=== PATIENT | male | born 1930 | race African-American/Black ===

== ENCOUNTER 2018-09-16 12:04 | Inpatient (IN) | payer OTHER ==
[~2018-09-16] VITALS: Ht 170.2 cm; Wt 59.4 kg
[~2018-09-16 12:04] MED LIST: ACET-2178 PO; ASPI-1159 PO; CALC-1035 PO; DOCU250C30 PO; Magnesium Oxide PO; SIMV20TA6 PO; TAMS-11 PO
[2018-09-16] MEDS ORDERED: SODIUM CHLORIDE 0.9% 1,000 ML IV ONE (13:50)
[2018-09-16 15:02] LABS: INR 1.1; PARTIAL THROMBOPLASTIN TIME 21.9 sec (23.4-31.0)
[2018-09-16 15:04] LABS: CHLORIDE 110 mEq/L (98-107)
[2018-09-16 15:08] LABS: EOSINOPHILS % 3.4 % (0.0-5.0); HEMATOCRIT. 30.1 % (42.0-52.0); HEMOGLOBIN. 9.7 g/dL (14.0-18.0); LYMPHOCYTES % 42.1 % (20.0-50.0); MEAN CORPUSCULAR HEMOGLOBIN 25.8 pg (28.0-32.0); MEAN PLATELET VOLUME 10.1 fl (7.4-10.4); MONOCYTES % 10.2 % (2.0-8.0); NEUTROPHILS % 43.3 % (40.0-76.0); PLATELET 205 x1000/uL (130-400); RED BLOOD CELL COUNT 3.76 mill/uL (4.7-6.1); RED CELL DISTRIBUTION WIDTH 15.7 % (11.6-14.6)
[2018-09-16 15:10] LABS: CLARITY URINE CLEAR (CLEAR); COLOR URINE YELLOW (YELLOW); KETONES URINE NEGATIVE (NEGATIVE); LEUKOCYTE ESTERASE URINE NEGATIVE (NEGATIVE); NITRITE URINE NEGATIVE (NEGATIVE); OCCULT BLOOD URINE NEGATIVE (NEGATIVE); PH URINE 5.5 (4.5-8.0); PROTEIN URINE NEGATIVE (NEGATIVE); SPECIFIC GRAVITY URINE 1.013 (1.005-1.030)
[2018-09-16] MEDS ORDERED: ASPIRIN 325MG EC TABLET PO ONE (16:45)
[2018-09-16] MEDS ORDERED: HYDROCODONE/ACETAMINOPHEN 5/325MG TABLET PO PRN (18:00)
[2018-09-16] MEDS ORDERED: DIPHENHYDRAMINE 50MG/ML VIAL IV PRN (18:00)
[2018-09-16] MEDS ORDERED: IPRATROPIUM/ALBUTEROL 0.5-3(2.5)MG/3ML NEB INH PRN (18:00)
[2018-09-16] MEDS ORDERED: ACETAMINOPHEN 650MG SUPP PR PRN (18:00)
[2018-09-16] MEDS ORDERED: ACETAMINOPHEN 325MG TABLET PO PRN (18:00)
[2018-09-16] MEDS ORDERED: CLONIDINE 0.1MG TABLET PO PRN (18:00)
[2018-09-16] MEDS ORDERED: ONDANSETRON HCL 4MG/2ML INJ IV PRN (18:00)
[2018-09-16] MEDS ORDERED: MAGNESIUM/ALUMINUM HYDROXIDE/SIMETHICONE 30ML UDC PO PRN (18:00)
[2018-09-16] MEDS ORDERED: NA PHOS,M-B/NA PHOS,DI-BA ENEMA 118ML PR PRN (21:00)
[2018-09-16 21:27] LABS: AMMONIA 31 uMol/L (<32)
[2018-09-17 01:15] VITALS: BP 145/88
[2018-09-17] MEDS ORDERED: DEXT 5%/0.45% NACL 1000ML 1,000 ML IV SCH (01:31)
[2018-09-17 01:38] VITALS: BP 145/88
[2018-09-17 04:00] VITALS: BP 141/71
[2018-09-17 06:11] LABS: *AMPHETAMINES SCREEN URINE NEGATIVE (NEGATIVE); *BARBITURATES SCREEN URINE NEGATIVE (NEGATIVE); *BENZODIAZEPINES SCREEN URINE NEGATIVE (NEGATIVE); *COCAINE SCREEN URINE NEGATIVE (NEGATIVE)
[2018-09-17 06:13] LABS: CANNABINOID URINE SCREEN NEGATIVE (NEGATIVE); METHADONE URINE SCREEN NEGATIVE (NEGATIVE); OPIATES URINE SCREEN NEGATIVE (NEGATIVE); PHENCYCLIDINE URINE SCREEN NEGATIVE (NEGATIVE)
[2018-09-17 06:56] LABS: BASOPHILS % 0.6 % (0.0-2.0); EOSINOPHILS % 3.7 % (0.0-5.0); HEMATOCRIT. 27.3 % (42.0-52.0); HEMOGLOBIN. 8.9 g/dL (14.0-18.0); LYMPHOCYTES % 42.3 % (20.0-50.0); MEAN CORPUSCULAR HEMOGLOBIN 25.8 pg (28.0-32.0); MEAN CORPUSCULAR VOLUME 79.2 fL (80.0-94.0); MEAN PLATELET VOLUME 10.1 fl (7.4-10.4); MONOCYTES % 10.3 % (2.0-8.0); NEUTROPHILS % 43.1 % (40.0-76.0); PLATELET 187 x1000/uL (130-400); RED BLOOD CELL COUNT 3.45 mill/uL (4.7-6.1); RED CELL DISTRIBUTION WIDTH 15.4 % (11.6-14.6)
[2018-09-17 07:21] LABS: CHLORIDE 112 mEq/L (98-107)
[2018-09-17 07:41] LABS: HDL CHOLESTEROL 56 mg/dL (40-59); LDL CHOLESTEROL 35 mg/dL (5-100); T4 FREE 1.05 ng/dL (0.76-1.46); TOTAL IRON BINDING CAPACITY 236 ug/dL (250-450)
[2018-09-17 08:00] VITALS: BP 141/74
[2018-09-17] MEDS ORDERED: ENOXAPARIN 40MG/0.4ML SYR SUBCUT SCH (09:00)
[2018-09-17 12:00] VITALS: BP 108/49
[2018-09-17 15:22] VITALS: BP 108/78
== END 2018-09-17 16:30 | disposition home health service (06) | DRG 683 ==
LOC: ER 15:46 → 5WST 17:06 → EDBEDREQTM 17:12 → EDBEDREQ 17:12 → SUPCPDRO 17:47 → ENRESERV 22:33
PROVIDERS: ADMIT Internal Medicine; ATTEND Internal Medicine
DX: N17.9 Acute kidney failure, unspecified (principal); G93.40 Encephalopathy, unspecified; J98.11 Atelectasis; E86.0 Dehydration; D64.9 Anemia, unspecified; F03.90 Unspecified dementia, unspecified severity, without behavioral disturbance, psychotic disturbance, mood disturbance, and anxiety; N40.0 Benign prostatic hyperplasia without lower urinary tract symptoms; R26.2 Difficulty in walking, not elsewhere classified; Z79.899 Other long term (current) drug therapy
CPT/HCPCS: 36415; 71045; 76770; 80061; 80305; 82140; 82962; 83540; 83550; 83880; 84439; 84443; 84484; 93005; 93306; 93970; 97162; 99285; J1650; J7030

== ENCOUNTER 2018-10-16 22:51 | Inpatient (IN) | payer OTHER ==
[~2018-10-16] VITALS: Ht 180.3 cm; Wt 73.5 kg
[2018-10-17 00:19] LABS: BASOPHILS % 1.3 % (0.0-2.0); EOSINOPHILS % 3.5 % (0.0-5.0); HEMATOCRIT. 29.4 % (42.0-52.0); HEMOGLOBIN. 9.4 g/dL (14.0-18.0); LYMPHOCYTES % 38.9 % (20.0-50.0); MEAN CORPUSCULAR HEMOGLOBIN 25.2 pg (28.0-32.0); MEAN PLATELET VOLUME 9.8 fl (7.4-10.4); NEUTROPHILS % 47.3 % (40.0-76.0); PLATELET 215 x1000/uL (130-400); RED BLOOD CELL COUNT 3.72 mill/uL (4.7-6.1); RED CELL DISTRIBUTION WIDTH 15.8 % (11.6-14.6)
[2018-10-17 00:27] LABS: CHLORIDE 116 mEq/L (98-107)
[2018-10-17] MEDS ORDERED: LABETALOL HCL 20MG/4ML CARPUJECT IV ONE (01:30)
[2018-10-17 14:00] VITALS: BP 147/87
[2018-10-17] MEDS ORDERED: ACETAMINOPHEN 325MG TABLET PO PRN (15:30)
[2018-10-17] MEDS ORDERED: DIPHENHYDRAMINE 50MG/ML VIAL IV PRN (15:30)
[2018-10-17] MEDS ORDERED: ONDANSETRON HCL 4MG/2ML INJ IV PRN (15:30)
[2018-10-17] MEDS ORDERED: MAGNESIUM/ALUMINUM HYDROXIDE/SIMETHICONE 30ML UDC PO PRN (15:30)
[2018-10-17] MEDS ORDERED: IPRATROPIUM/ALBUTEROL 0.5-3(2.5)MG/3ML NEB INH PRN (15:30)
[2018-10-17] MEDS ORDERED: ACETAMINOPHEN 650MG SUPP PR PRN (15:30)
[2018-10-17] MEDS ORDERED: HYDROCODONE/ACETAMINOPHEN 5/325MG TABLET PO PRN (15:30)
[2018-10-17] MEDS ORDERED: NA PHOS,M-B/NA PHOS,DI-BA ENEMA 118ML PR PRN (15:30)
[2018-10-17] MEDS ORDERED: GUAIFENESIN 200MG/10ML SUGAR FREE UDC PO PRN (15:30)
[2018-10-17] MEDS ORDERED: DOCUSATE SODIUM 100MG CAPSULE PO PRN (15:30)
[2018-10-17] MEDS ORDERED: CLONIDINE 0.1MG TABLET PO PRN (15:30)
[2018-10-17 16:00] VITALS: BP 137/77
[2018-10-17] MEDS ORDERED: ENOXAPARIN 30MG/0.3ML SYR SUBCUT SCH (16:00)
[2018-10-17 16:22] LABS: BG BASE EXCESS 0.9 mmol/L (-2.0-2.0); BG CARBOXYHEMOGLOBIN 0.3 % (0.5-1.5); BG DEOXYHEMOGLOBIN 3.5 % (0.0-5.0); BG FRACTION INSPIRED OXYGEN 21; BG HCO3 ACT 26.3 mmol/L (22.0-26.0); BG METHEMOGLOBIN 0.4 % (0.0-1.5); BG OXYGEN SATURATION 96.5 % (92.0-98.5); BG OXYHEMOGLOBIN 95.8 % (94.0-97.0); BG PCO2 45.4 mmHg (35.0-45.0); BG PO2 86.9 mmHg (75.0-100.0); BG SAMPLE SITE RIGHT BRACHIAL; BG TOTAL HEMOGLOBIN 9.4 g/dL (12.0-18.0); BG VENT MODE ROOM AIR
[2018-10-17 16:30] VITALS: BP 147/84
[2018-10-17] MEDS: DEXT 5%/0.45% NACL 1000ML 1,000 ML IV SCH (17:47)
[2018-10-17] MEDS ORDERED: PNEUMOCOCCAL 23-VAL P-SAC VAC 0.5 ML IM ONE (18:00)
[2018-10-17] MEDS ORDERED: INFLUENZA VIRUS VACCINE(AFLURIA) 0.5ML SYR IM ONE (18:00)
[2018-10-17 20:00] VITALS: BP_SYST 131; BP_SYST 153; BP_DIAS 77; BP_DIAS 83
[2018-10-18] VITALS (7 sets, daily range): BP systolic 115–147; BP diastolic 69–78
[2018-10-18 07:33] LABS: INR 1.1; PROTHROMBIN TIME 11.5 sec (9.1-11.1)
[2018-10-18 07:35] LABS: BASOPHILS % 0.9 % (0.0-2.0); EOSINOPHILS % 4.3 % (0.0-5.0); HEMATOCRIT. 26.8 % (42.0-52.0); HEMOGLOBIN. 8.7 g/dL (14.0-18.0); LYMPHOCYTES % 30.4 % (20.0-50.0); MEAN CORPUSCULAR HEMOGLOBIN 25.4 pg (28.0-32.0); MEAN CORPUSCULAR VOLUME 78.5 fL (80.0-94.0); MEAN PLATELET VOLUME 9.9 fl (7.4-10.4); MONOCYTES % 14.1 % (2.0-8.0); NEUTROPHILS % 50.3 % (40.0-76.0); PLATELET 214 x1000/uL (130-400); RED BLOOD CELL COUNT 3.41 mill/uL (4.7-6.1); RED CELL DISTRIBUTION WIDTH 15.7 % (11.6-14.6)
[2018-10-18 09:50] LABS: CHLORIDE 115 mEq/L (98-107)
[2018-10-18 10:01] LABS: LDL CHOLESTEROL 40 mg/dL (5-100)
[2018-10-18 10:02] LABS: HDL CHOLESTEROL 52 mg/dL (40-59)
[2018-10-18] MEDS: DEXT 5%/0.45% NACL 1000ML 1,000 ML IV SCH (14:06)
[2018-10-18] MEDS: ENOXAPARIN 40MG/0.4ML SYR SUBCUT SCH (17:35)
[2018-10-19] VITALS: BP 125/71
[2018-10-19 04:00] VITALS: BP 128/79
[2018-10-19 08:00] VITALS: BP 126/72
[2018-10-19] MEDS ORDERED: FINASTERIDE 5MG TABLET PO SCH (09:00)
[2018-10-19] MEDS ORDERED: CARBIDOPA/LEVODOPA 25/100MG TABLET PO SCH (09:00)
[2018-10-19 12:00] VITALS: BP 119/73
[2018-10-19 15:57] VITALS: BP 119/73
[2018-10-19 16:00] VITALS: BP 108/69
[2018-10-19] MEDS: ENOXAPARIN 40MG/0.4ML SYR SUBCUT SCH (18:22)
[2018-10-19] MEDS ORDERED: ATORVASTATIN CALCIUM 10MG TABLET PO SCH (21:00)
[2018-10-19] MEDS ORDERED: SENNOSIDES 8.6MG TABLET PO PRN (21:00)
== END 2018-10-19 18:27 | disposition home health service (06) | DRG 683 ==
LOC: ER 22:51 → 7WST 10-17 01:39 → ENRESERV 10-17 10:34
PROVIDERS: ADMIT Internal Medicine; ATTEND Internal Medicine
DX: N17.9 Acute kidney failure, unspecified (principal); G93.40 Encephalopathy, unspecified; I16.0 Hypertensive urgency; G30.9 Alzheimer's disease, unspecified; G20 Parkinson's disease; F02.80 Dementia in other diseases classified elsewhere, unspecified severity, without behavioral disturbance, psychotic disturbance, mood disturbance, and anxiety; D64.9 Anemia, unspecified; N18.9 Chronic kidney disease, unspecified; I12.9 Hypertensive chronic kidney disease with stage 1 through stage 4 chronic kidney disease, or unspecified chronic kidney disease; E86.0 Dehydration; Z79.899 Other long term (current) drug therapy; Z79.82 Long term (current) use of aspirin; Z91.81 History of falling
CPT/HCPCS: 36415; 36600; 71045; 72131; 72170; 80061; 82140; 82375; 82805; 82962; 84443; 84484; 90686; 90732; 93005; 96374; 97162; 99285; C1893; J1650; J3490